=== PATIENT | male | born 1980 | race Caucasian/White ===

== ENCOUNTER 2022-06-03 09:33 | Emergency (ER) | payer MEDICAID ==
[~2022-06-03] VITALS: Ht 185.4 cm; Wt 108.9 kg
--- NOTE | 2022-06-03 10:00 | NUR ---
Pt brought by self, A&Ox4, pt presents to ER with cough/congestion, bodyaches, skin pink and warm, cap refill<3, VSS, will cont to monitor.
[2022-06-03 10:03] VITALS: BP_SYST 160
--- NOTE | 2022-06-03 10:25 | NUR ---
Dr Vyas evaluating patient at bedside
[2022-06-03] MEDS ORDERED: IBUP-1969 PO (12:52)
[2022-06-03 13:00] VITALS: BP_SYST 160
--- NOTE | 2022-06-03 13:00 | NUR ---
Patient given written and verbal discharge instructions and verbalizes understanding. ER MD discussed with patient the results and treatment provided. Patient in stable condition. ID arm band removed. Rx of Ibuprofen given. Patient educated on pain management and to follow up with PMD. Pain Scale 0/10 Opportunity for questions provided and answered. Medication side effect fact sheet provided.
== END 2022-06-03 17:45 | disposition home or self-care (01) ==
LOC: SED 09:33
DX: U07.1 COVID-19 (principal); R05.9 Cough, unspecified; R50.9 Fever, unspecified
CPT/HCPCS: 71045; 99283